=== PATIENT | male | born 1995 | race Caucasian/White ===

== ENCOUNTER 2017-04-13 09:14 | Day surgery (SDC) | payer OTHER ==
--- NOTE | 2017-04-07 21:44 | HP ---
PREOPERATIVE HISTORY AND PHYSICAL: DATE OF SURGERY: 04/13/17 DATE OF OFFICE VISIT: 04/07/17 ATTENDING SURGEON: Dr. Magaly Justin. PROCEDURE: Right shoulder arthroscopic labral repair subpectoral biceps tenodesis. CHIEF COMPLAINT: Right shoulder pain and instability. HISTORY OF PRESENT ILLNESS: Zaid is a 22-year-old male who presents to clinic for right shoulder aleida n and instability for several years due to a labral tear. He has failed conservative measures and h as therefore agreed to undergo a right shoulder arthroscopic labral repair and subpectoral biceps te nodesis with Dr. Justin on 04/13/17. PAST MEDICAL HISTORY: Denies current medical problems. PAST SURGICAL HISTORY: [place] teeth extraction and drainage of a cyst in his hips. MEDICATIONS: Karin 180 mg one by mouth daily. ALLERGIES: No known drug allergies. FAMILY HISTORY: Positive for heart disease. SOCIAL HISTORY: He is a college student who lives with his roommate. He denies tobacco or alcohol use or illegal drug use. REVIEW OF SYSTEMS: General: Negative for fever, chills, or night sweats. No known anesthesia prob lems. HEENT: Negative for headache, lightheadedness, or syncopal episodes. Integumentary: Negati ve for abrasions, lesions, or open wounds. Cardiothoracic: Negative for chest pain, palpitations, or edema. Negative for hypertension. Pulmonary: Negative for shortness of breath with exertion, ch ronic cough, or COPD. GI: Negative for nausea, vomiting, diarrhea, constipation, or GERD. : Ne gative for nocturia, urinary frequency, history of UTIs, or kidney problems. Musculoskeletal: Posi tive for current complaint. Neuro: Denies numbness and tingling, history of seizure, stroke, or epi lepsy. Endocrine: Negative for diabetes or thyroid issues. Heme: Negative for easy bruising, anem ia, excessive bleeding, history of DVT or PE. Infectious Disease: Negative for history of MRSA. PHYSICAL EXAM: GENERAL: Well-developed, well-nourished 22-year-old male, in no acute distress. Lisa rt and oriented x3. Appropriate mood and affect. VITAL SIGNS: Height 80.5, weight 303. Blood pressure 118/75, respiratory rate 15, temperature 97.0 , BMI of 32.9. HEENT: Normocephalic, atraumatic. Throat clear. NECK: Supple. PULMONARY: Lungs are clear to auscultation bilaterally. No wheezing, rhonchi, or rales. CARDIO: Regular rate and rhythm. S1, S2. No murmurs, gallops, or rubs. No edema. ABDOMEN: Positive bowel sounds. Soft, nontender. MUSCULOSKELETAL: Bilateral shoulders full range of motion, +5/5 strength on rotator cuff testing. Positive Speeds. Discomfort with anterior pivot shift, 1 to 2+ anterior shift on the right, 1+ post erior shift on the left, 1 to 2+ anterior shift and 1+ posterior shift, negative Ramona test. +2 radia l pulse. Sensation intact to light touch distally. NEURO: Alert and oriented x3. Cranial nerves grossly intact. Sensation intact to light touch. DIAGNOSTIC STUDIES/LAB DATA: MRI arthrogram of the right shoulder revealed anterior labral tear reva t appears to be chronic, possibly superior labral tear, rotator cuff is intact. IMPRESSION: Right shoulder labral tear. PLAN: The patient is scheduled to undergo a right shoulder arthroscopic labral repair and subpector al biceps tenodesis with Dr. Justin on 04/13/17. He will return to the office in 10 to 14 days post op for followup and suture removal. Percocet will be used for postoperative pain management. KRYSTA FIGUEROA [id number]/[facility] #: [id number]
[~2017-04-13 09:14] MED LIST: Dexamethasone IV* 4 MG/ML 1 ML (4 MG) ONE; Famotidine IV* 10 MG/ML 2 ML (20 mg) IV ONE; Ketorolac INJ* 30 MG/ML 1 ML VIAL ONE; Lidocaine 2% PF * 5 ML VIAL ONE; Midazolam* 1 MG/ML 5 ML VIAL (5 MG) ONE; Ondansetron INJ* 2 MG/ML VIAL ONE; Propofol* 10 MG/ML 20 ML BTL IV PUSH ONE; Succinylcholine* 20 MG/ML 10 ML VIAL ONE; fentaNYL* 50 MCG/ML 2 ML VIAL (100 MCG VIAL) ONE
[2017-04-13] MEDS ORDERED: Famotidine IV* 10 MG/ML 2 ML (20 mg) ONE (09:36)
[2017-04-13] MEDS ORDERED: ceFAZolin 2 GM PREMIX(*) 2 GM/50 ML BAG IVPB ONE (09:36)
[2017-04-13] MEDS ORDERED: ceFAZolin 1 GM in Dextrose (*) 1 GM/50 ML BAG IVPB ONE (09:36)
[2017-04-13] MEDS ORDERED: Buffered Lidocaine 0.9% SYRIN* 5 ML/SYR SYRINGE ONE (09:37)
[2017-04-13] MEDS ORDERED: ROPIVACAINE 5 MG/ML 30 ML BTL (0.5%) ONE (09:40)
[2017-04-13] MEDS ORDERED: Bupivacaine 0.5% SDV PF* 30 ML VIAL ONE (10:50)
[2017-04-13] MEDS ORDERED: Lidocaine 2% PF * 5 ML VIAL ONE (10:53)
[2017-04-13] MEDS ORDERED: Oxymetazoline 0.05% NASAL SPR* 15 ML BTL ONE (10:55)
[2017-04-13] MEDS ORDERED: fentaNYL* 50 MCG/ML 2 ML VIAL (100 MCG VIAL) ONE (11:38)
[2017-04-13] MEDS ORDERED: Oxymetazoline 0.05% NASAL SPR* 15 ML BTL BOTH NARES ONE (11:57)
[2017-04-13] MEDS ORDERED: HYDROcodone/ACETAMIN 5-325 MG* 1 TAB PO PRN (11:58)
[2017-04-13] MEDS ORDERED: DiMENhydriNATE IV* 50 MG/ML VIAL IV PUSH PRN (11:58)
[2017-04-13] MEDS ORDERED: HYDROmorphone* 1 MG/ML 1 ML SYR IV PRN (11:58)
[2017-04-13] MEDS ORDERED: DiMENhydriNATE IV* 50 MG/ML VIAL ONE (12:00)
[2017-04-13] MEDS ORDERED: Bupivacaine 0.25% SDV* 30 ML ONE (13:07)
[2017-04-13] MEDS ORDERED: Propofol* 10 MG/ML 20 ML BTL IV PUSH ONE (13:27)
[2017-04-13] MEDS ORDERED: HYDROcodone/ACETAMIN 5-325 MG* 1 TAB ONE (14:57)
[2017-04-13 15:42] VITALS: BP 127/67
--- NOTE | 2017-04-14 08:37 | OP ---
DATE OF OPERATION: 04/13/17 [facility] DATE OF : [birth year] SURGEON: Magaly Justin MD [employer]ATER: KRYSTA Hicks. An case assistant was needed for the entirety of the case to help with positioning, retraction, placement of anchors, and closure , was utilized throughout all portions of the case. ANESTHESIOLOGIST: Dr. Holt. ANESTHESIA: General, interscalene block. PRE-OP DIAGNOSIS: Right shoulder instability with bicipital tendinitis. POST-OP DIAGNOSIS: Right shoulder instability with bicipital tendinitis. OPERATIVE PROCEDURE: Right shoulder arthroscopy with anterior and posterior labral repair and subpectoral biceps tenodesis. INDICATIONS: Ruthann Naidu is a 22-year-old, right hand dominant male, who has had a persistent instability of bilateral shoulders, the right is worse than the left. He has had persistent pain and has failed conservative management. After extensive discussion of the risks and benefits of operative procedure versus nonoperative treatment, he elected to proceed with operative treatment. Risks include, but are not limited to, bleeding, infection, damage to nerves, vessels, surrounding structures, the wound nonhealing, persistent pain, need for further surgery, risk of anesthesia, scarring, stiffness, incomplete relief of symptoms, redislocation, and risk of DVT. He and his parents have elected to proceed with surgery. COMPLICATIONS: None. ESTIMATED BLOOD LOSS: Minimal. IMPLANTS: Six Loo and Nephew 2.9-mm Bioraptors and one 2.8-mm Q-Fix anchor. DESCRIPTION OF PROCEDURE: The patient was greeted in the preoperative area by the attending surgeon. Correct extremity was marked and consent was confirmed. The patient then underwent interscalene nerve block in the preanesthesia area , which he tolerated without difficulty, after which the patient was then brought back to the operating suite, where he was placed in supine position on the operating table. He then underwent general anesthesia with endotracheal intubation. The patient was then placed in the left lateral decubitus position with all bony prominences padded. He was supported with a peg board as well as an axillary roll. The right arm was draped unsterile from the traction bed with 15 pounds of traction. A lateral hector was then used also to help with positioning of the arm. The right shoulder was then prepped and draped in the usual sterile fashion beginning with chlorhexidine soap, scrub, and alcohol wipe , and a final prep with ChloraPrep. After appropriate surgical pause indicating side, site, procedure, and administration of antibiotics, a standard postero-lateral portal was made sharply with an 11 blade, the scope was then introduced to the joint. The joint was examined. There was hyperemia, inflammation along the interval, and the superior labrum was completely torn. The anterior labrum was torn from the 3 o'clock to the 9 o'clock position posteriorly. There was unstable fraying that was present about the labrum. There was positive dry-through sign. There was a small Hill-Sachs lesion. There was no significant glenoid or humeral wear. The undersurface of the supraspinatus and subscap were in good condition. The low anterior portal was made in an outside-in fashion and an ___ __-mm cannula was placed just superior to the subscap as a working portal. A second portal was placed superiorly to the recess and at the border of the cuff and a 5-mm cannula was placed there for suture shuttling. The lateral HECTOR was helped to use position and retract the humeral head with the case assistant helping as well. The labrum was probed and found to be completely torn as I said from the 3 o'clock to the 9 o'clock position. The shaver was brought in and debrided back the unstable fraying from the 3 o'clock to 9 o'clock position. The biceps was taken through range of motion. The superior labrum was torn, there was positive peel-back sign. The bicipital groove had abundant inflammation and erythema that was present. Therefore, this was tenotomized using the arthroscopic scissors. At this point, attention was directed to the labrum. The anterior labrum beginning at around 3 o'clock position was then carefully elevated and released in its entirety all the way to the 6 o'clock position. It was raised to the level of the visualization of the subscapularis. At this point, the shaver was used to allow for bony bleeding edge as well as a small red ball rasp. This was used to aggravate the bone to allow for good healing response. The double- ended rasp was also used to roughen up the capsule as the portion of the capsule was planned to be grabbed during repair. Once the glenoid preparation was completed, attention was directed to anchor placement. The 2.9 Bioraptor and guide was then placed, at the most inferior portion around the 5:30 position , an anchor was placed with excellent purchase. At this point, the suture passing device was then used to pass the sutures beginning most inferiorly to allow for an [id number] capsular shift in addition to withdrawing the labrum. This was passed in a horizontal mattress configuration and tied down using arthroscopic knot tying technique. A second anchor was placed at around the 4:30 position in a similar fashion in passing the horizontal mattress configuration, which allowed to help restore the labrum and then two more anchors were placed at around the 3:30 and then the 2:30 position. This allowed for excellent druze of the anterior labrum. At this point, attention was directed posteriorly and cannula was placed in the posterior portal and the posterior labrum was probed; it was found to be unstable even after debriding back the fraying. At this point, a decision was made to place another anchor; first one was placed at around the 7 o'clock position and the second one at the 8 o'clock position. These were then placed with excellent purchase and tied down. The anchors were tied down in arthroscopic knot tying. At this point, the shoulder was assessed and found to be appropriately seated. In the shoulder, final images were obtained and all fluid and debris were removed from the joint. Attention was directed to the biceps and the anterior aspect of the shoulder was reprepped using ChloraPrep. The 15 blade was used to make an incision in line with the biceps and covering the inferior two-thirds of the pec tendon. The soft tissue was carefully dissected to expose the pec. Once the fascia was identified, the Metzenbaum scissors was put away and the remainder of the dissection was done bluntly. The bicipital groove was palpated. The electrocautery device was used to make a celso in the fascia and the biceps was removed through the wound using a right angle clamp. The biceps was identified and had abundant synovitis and inflammation that was apparent. At this point, the bicipital groove was prepared in the usual fashion beginning with electrocautery device. Then, the red ball rasp and then finally an osteotome to allow for bony bleeding bed. The Q-Fix anchor was then drilled unicortically and two Q-Fix were deployed with excellent purchase. The sutures were then passed through the tendon approximately 1 cm proximal to the musculo-tendinous junction in a Carlos-Galen type configuration. The excess biceps was then sharply excised and the biceps was shuttled back into the wound. The biceps was then secured using knots, and the wound was copiously irrigated with sterile saline. The portals were closed with 3-0 nylon. The anterior wound was closed in layers with 2-0 Vicryl, 3-0 Monocryl, and sterile dressings were applied, as well as 20 cc of Marcaine was used to supplement the block anteriorly along the wound. Sterile dressings were applied, Cryo/Cuff as well as an UltraSling was applied. He was awoken from anesthesia, transferred to PACU in stable condition. POSTOPERATIVE PLAN: He will be nonweightbearing and in a sling for 6 weeks. He will be allowed to work on elbow, wrist, and hand range of motion. He will not start therapy until 6 weeks postop. He will be discharged with pain medications as well as antibiotics. I will see the patient back in 10 to 14 days. DVT prophylaxis was considered, but deferred due to no previous personal or family history. [id number]/[facility] #: [id number] LIN
== END 2017-04-13 15:49 | disposition home or self-care (01) ==
LOC: OR 09:14
PROVIDERS: ATTEND Orthopaedic Surgery
DX: M25.311 Other instability, right shoulder (principal); M75.21 Bicipital tendinitis, right shoulder; M75.81 Other shoulder lesions, right shoulder; G89.18 Other acute postprocedural pain
CPT/HCPCS: A9270-GY; C1776; J0330; J0690; J1100; J1240; J1885; J2250; J2405; J2704; J2795; J3010

== ENCOUNTER 2017-07-05 12:54 | Day surgery (SDC) | payer OTHER ==
[~2017-07-05 12:54] MED LIST changes: +Buffered Lidocaine 0.9% SYRIN* 5 ML/SYR SYRINGE INTRADERM ONE; -Dexamethasone IV* 4 MG/ML 1 ML (4 MG) ONE; -Ketorolac INJ* 30 MG/ML 1 ML VIAL ONE; -Lidocaine 2% PF * 5 ML VIAL ONE; -Midazolam* 1 MG/ML 5 ML VIAL (5 MG) ONE; +Morphine INJ* 2 MG/ML 1 ML SYRINGE IV PRN; -Ondansetron INJ* 2 MG/ML VIAL ONE; +PROCHLORPERAZINE INJ 5 MG/ML 2 ML VIAL IV PRN; -Propofol* 10 MG/ML 20 ML BTL IV PUSH ONE; +Scopolamine 1.5 mg* PATCH TRANSDERM PRN; -Succinylcholine* 20 MG/ML 10 ML VIAL ONE; +fentaNYL* 50 MCG/ML 2 ML VIAL (100 MCG VIAL) IV PRN; -fentaNYL* 50 MCG/ML 2 ML VIAL (100 MCG VIAL) ONE; +oxyCODONE/Acetamin 5/325 MG* TAB PO PRN
[2017-07-05] MEDS ORDERED: fentaNYL* 50 MCG/ML 5 ML VIAL (250 MCG VIAL) ONE (12:56)
[2017-07-05] MEDS ORDERED: KETAMINE HCL* 50 MG/ML 10 ML VIAL ONE (12:56)
[2017-07-05] MEDS ORDERED: Midazolam* 1 MG/ML 10 ML VIAL (10 MG) ONE (12:56)
[2017-07-05] MEDS ORDERED: ceFAZolin 2 GM PREMIX (*) 0 ML IVPB ONE (12:57)
[2017-07-05] MEDS ORDERED: ceFAZolin 1 GM ADVAN(*) 1 GM ADDV.VIAL IVPB ONE ×2 (12:57→13:19)
[2017-07-05] MEDS ORDERED: Famotidine IV* 10 MG/ML 2 ML (20 mg) ONE (13:19)
[2017-07-05] MEDS ORDERED: ceFAZolin 2 GM PREMIX (*) 50 ML IVPB ONE (13:19)
[2017-07-05] MEDS ORDERED: Bupivacaine 0.25% SDV* 30 ML ONE ×2 (13:42→14:35)
[2017-07-05] MEDS ORDERED: Bupivacaine 0.5% SDV PF* 30 ML VIAL ONE (14:03)
[2017-07-05] MEDS ORDERED: Dexamethasone IV* 4 MG/ML 1 ML (4 MG) ONE (15:08)
[2017-07-05] MEDS ORDERED: Propofol* 10 MG/ML 20 ML BTL IV PUSH ONE (15:08)
[2017-07-05] MEDS ORDERED: Ondansetron INJ* 2 MG/ML VIAL ONE (15:08)
[2017-07-05] MEDS ORDERED: Lidocaine 2% PF * 5 ML VIAL ONE (15:08)
[2017-07-05 18:05] VITALS: BP 130/80
[2017-07-08] MEDS ORDERED: Scopolomine PATCH Remove* 1 NOTE MISC PATCH OFF ONE (05:58)
--- NOTE | 2017-07-08 09:05 | OP ---
CC: Dr. Winchester * DATE OF OPERATION: 07/05/17 - [facility] DATE OF : [birth year] SURGEON: Magaly Justin MD. [employer]ER OPERATOR: KRYSTA Hicks. ANESTHESIOLOGIST: Dr. Hernandez. ANESTHESIA: General, interscalene block. PRE-OP DIAGNOSIS: Left shoulder instability with possible bicipital tendinitis. POST-OP DIAGNOSIS: Left shoulder instability with possible bicipital tendinitis. OPERATIVE PROCEDURE: Left shoulder arthroscopy with glenohumeral debridement with anterior and posterior labral repair and subpectoral biceps tenodesis. 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 His right shoulder had been previously addressed approximately 3 months ago. He has now returned to address the left shoulder which he has had at least two dislocations. He has failed conservative management. Risks and benefits of surgery were discussed in length and included, but are not limited to, bleeding, infection, damage to nerves, vessels, surrounding structures, the wound nonhealing, persistent pain, need for further surgery, scarring, thickness, risks of anesthesia, incomplete relief of symptoms, failure of the repair, risk of arthritis and need for further surgery. He has elected to proceed with surgery. IMPLANTS: Five Loo and Nephew Bioraptors and one Loo and Nephew 2.8-mm Q- Fix anchor. COMPLICATIONS: None. ESTIMATED BLOOD LOSS: Minimal. DESCRIPTION OF PROCEDURE: The patient was greeted in the preoperative area by the attending surgeon. Correct extremity was marked and consent was confirmed. The patient underwent interscalene nerve block by the anesthesiologist, after which he was brought to the operating suite where he was placed in supine position and then gently placed in the right lateral decubitus position. He himself was placed in that position. An axillary roll was placed. All bony prominences were padded. He then underwent general anesthesia and LMA intubation by the anesthesiologist. He was secured using a peg board. The left arm was draped unsterile with 10 pounds of traction, eventually it was raised to 15 pounds of traction. All bony prominences were padded and he was secured on the bed. The left shoulder was then prepped and draped in the usual sterile fashion, beginning with chlorhexidine soap, scrub, and alcohol wipe, and a final prep with ChloraPrep. After appropriate surgical pause indicating side, site, procedure, and administration of antibiotics, a standard posterolateral portal was made sharply with an 11 blade and the scope was then introduced through the joint. The joint was examined carefully. There were grade 0 to 1 changes in the glenoid and the humeral head. The biceps was subluxed and erythematous and tenotomized. The undersurface of the rotator cuff was intact. There was evidence of the shoulder subluxed anteriorly and tearing from the 3 o'clock position all the way to the 9 o'clock position. There was a small unstable flap inferiorly at the inferior labrum. The lateral nasrin was used to help assist with positioning. The low anterior portal was then established and then a large bore 8 mm cannula was placed and the second one was placed superiorly in the interval. It was proximally 5 mm which was used for suture shuttling and visualization. The shaver was used to debride back the unstable flaps. The labrum was then prepared. It was first carefully released from the scarred adhesions beginning at the 3 o'clock position all the way to the 6 o'clock position. Care was taken to not cut the labrum. After this was done and the labrum was fully released to expose the subscap beneath that, the bone was prepared using the shaver as well as the red ball rasp. The small double-ended curved rasp was then used to rasp the capsule. Once all this debridement was removed at this point, the anchor placed and we began beginning with the 5:30 position, which an anchor was placed with excellent purchase. The sutures were passed in the horizontal mattress configuration. This was then tied down using arthroscopic knot tieing. This allowed for appropriate nondenominational of the anterior and inferior glenohumeral ligament as well as the bumper and helped to reduce the drive-through sign. A second anchor was placed at the 4:30 position. This was also placed in a horizontal mattress configuration, which helped further restore the anterior labrum. A third anchor was placed at around the 3:30 position and this was tied in a simple fashion. This helped restore the labrum in its entirety. Attention was directed to the posterior aspect. The scope was then positioned upon the shoulder and it was found that there was tearing posteriorly that would require repair. An anchor was placed in the 7 o'clock position and then tied down. The sutures were passed in a simple fashion. It was tied down. A second one was placed at the 8 o'clock position in a similar fashion. This helped to restore and center the glenoid appropriately. All loose debris and fluid was removed. Final images were obtained. The attention was directed to the biceps. The bed was air-planed to the left side. The anterior aspect of the shoulder was prepped and draped in the usual sterile fashion and an incision in line with the biceps tendon was then made sharply with a 15 blade. The soft tissues were carefully dissected to expose the fascia. The undersurface of the pec was then retracted proximally and the bicipital groove was palpated. The biceps was then brought through the wound. It was found to have abundant synovitis and inflammation. The bicipital groove was then prepped in the usual fashion with electrocautery device, the red ball rasp, and osteotome. Once this was complete, the Q-Fix guide was then placed and drilled unicortically. The Q-Fix anchor was deployed with good purchase. The sutures were passed through the tendon approximately 1 cm proximal to the musculotendinous junction in a Carlos- Galen type configuration. The excess stump was sharply excised and the biceps was shuttled back into the wound and tied down. The wounds were copiously irrigated with sterile saline. The portals were closed with 3-0 nylon. The anterior wound was closed in layers with 2-0 Vicryl and 3-0 Monocryl. Anterior wound was then injected with 0.25% Marcaine plain. Sterile dressings were applied and Cryo/Cuff and UltraSling. He was awoken from anesthesia, transferred to PACU in stable condition. POSTOPERATIVE PLAN: He will be nonweightbearing for 6 weeks. He will be allowed to work on passive range of motion beginning at 4 weeks. He will be allowed active range of motion of elbow, wrist, and hand. He will be discharged with pain medications and antibiotics. DVT prophylaxis was considered, but deferred due to no previous personal or family history. I will see the patient back in 10-14 days. [id number]/[facility] #: [id number] [facility]ITAL[facility]
== END 2017-07-05 18:14 | disposition home or self-care (01) ==
LOC: OR 12:54
PROVIDERS: ATTEND Orthopaedic Surgery
DX: M25.312 Other instability, left shoulder (principal); M75.22 Bicipital tendinitis, left shoulder
CPT/HCPCS: C1776; J0690; J1100; J2250; J2405; J2704; J3010